=== PATIENT | male | born 1955 | race Caucasian/White ===

== ENCOUNTER 2022-09-09 12:20 | Observation (INO) | payer MEDICARE, OTHER ==
[~2022-09-09] VITALS: Ht 167.7 cm; Wt 100.0 kg
[2022-09-09] MEDS ORDERED: NS IV 1000 ML 1,000 ML IV STA ×2 (12:43→13:53)
[2022-09-09] MEDS ORDERED: DOXYCYCLINE 100 MG (VIBRAMYCIN) TABLET PO STA (12:43)
--- NOTE | 2022-09-09 12:43 | ED Fever ---
History of Present Illness General Stated Complaint: VOMITING Source: patient, family Exam Limitations: no limitations History of Present Illness Date Seen by Provider: Sep 09, 2022 Time Seen by Provider: 12:25 Initial Comments 67-year-old male with past medical history of diabetes, hypertension, hyperlipidemia coming in due to 3 days of fever, cough, congestion, and nonbloody nonbilious vomiting. Was urinating last night and had a near syncopal episode where he caught himself. Did not hit his head or pass out. Denies any dysuria or hematuria. Otherwise denies any chest pain, palpitations, shortness of breath, abdominal pain, rash, focal weakness or numbness, headache, neck stiffness, or any other concerns. Has not had any antipyretics today. Does endorse some right flank pain which is new to him. Allergies and Home Medications Allergies Coded Allergies: Penicillins (Verified Allergy, Unknown, 09/09/22) lisinopril (Verified Allergy, Unknown, 09/09/22) Patient Home Medication List Home Medication List Reviewed: Yes Review of Systems Review of Systems Constitutional: fever EENTM: nose congestion Respiratory: cough Cardiovascular: No chest pain Gastrointestinal: no symptoms reported Genitourinary: no symptoms reported Musculoskeletal: no symptoms reported Skin: no symptoms reported Psychiatric/Neurological: No Symptoms Reported Hematologic/Lymphatic: No Symptoms Reported Immunological/Allergic: no symptoms reported All Other Systems Reviewed Negative Unless Noted: Yes Past Zvcidzz-Pgrxwf-Nycvqc Hx Patient Social History Tobacco Use?: No Smoking Status: Former Smoker Past Medical History Surgeries: No Physical Exam Vital Signs - First Documented 09/09/22 12:25 Temp 37.9 Pulse 89 Resp 17 B/P (MAP) 120/70 (87) O2 Delivery Room Air Capillary Refill : Height: '" Weight: lbs. oz. kg; BMI Method: General Appearance: WD/WN, no apparent distress Eyes: Bilateral Eye Normal Inspection HEENT: PERRL/EOMI, normal ENT inspection, pharynx normal Neck: non-tender, full range of motion, supple, normal inspection Respiratory: chest non-tender, no respiratory distress, no accessory muscle use, wheezing Cardiovascular: regular rate, rhythm, no edema, no murmur Gastrointestinal: normal bowel sounds, non tender, soft; No distended, No guarding, No rebound; hernia (Periumbilical, reducible) Extremities: normal range of motion, non-tender, normal inspection, no pedal edema, no calf tenderness, normal capillary refill Neurologic/Psychiatric: no motor/sensory deficits, alert, normal mood/affect Skin: normal color, warm/dry Lymphatic: no adenopathy Focused Exam Lactate Level 09/09/22 12:35: Lactic Acid Level 2.54*H 09/09/22 14:42: Lactic Acid Level 1.50 Lactic Acid Level Laboratory Tests Test 09/09/22 12:35 09/09/22 14:42 Lactic Acid Level 2.54 MMOL/L (0.50-2.00) *H 1.50 MMOL/L (0.50-2.00) Progress/Results/Core Measures Suspected Sepsis SIRS Temperature: Pulse: Respiratory Rate: Laboratory Tests 09/09/22 12:35: White Blood Count 8.5 Blood Pressure / Mean: 09/09/22 12:35: Lactic Acid Level 2.54*H 09/09/22 14:42: Lactic Acid Level 1.50 Laboratory Tests 09/09/22 12:35: Creatinine 0.74, Platelet Count 179, Total Bilirubin 1.0 Results/Orders Lab Results Laboratory Tests Test 09/09/22 12:35 09/09/22 12:40 09/09/22 14:42 Range/Units White Blood Count 8.5 4.3-11.0 10^3/uL Red Blood Count 4.84 4.30-5.52 10^6/uL Hemoglobin 15.7 13.3-17.7 g/dL Hematocrit 43 40-54 % Mean Corpuscular Volume 88 80-99 fL Mean Corpuscular Hemoglobin 32 25-34 pg Mean Corpuscular Hemoglobin Concent 37 H 32-36 g/dL Red Cell Distribution Width 11.4 10.0-14.5 % Platelet Count 179 130-400 10^3/uL Mean Platelet Volume 9.7 9.0-12.2 fL Immature Granulocyte % (Auto) 1 % Neutrophils (%) (Auto) 81 H 42-75 % Lymphocytes (%) (Auto) 12 12-44 % Monocytes (%) (Auto) 7 0-12 % Eosinophils (%) (Auto) 0 0-10 % Basophils (%) (Auto) 0 0-10 % Neutrophils # (Auto) 6.9 1.8-7.8 10^3/uL Lymphocytes # (Auto) 1.0 1.0-4.0 10^3/uL Monocytes # (Auto) 0.6 0.0-1.0 10^3/uL Eosinophils # (Auto) 0.0 0.0-0.3 10^3/uL Basophils # (Auto) 0.0 0.0-0.1 10^3/uL Immature Granulocyte # (Auto) 0.0 0.0-0.1 10^3/uL Sodium Level 129 L 135-145 MMOL/L Potassium Level 3.3 L 3.6-5.0 MMOL/L Chloride Level 88 L 98-107 MMOL/L Carbon Dioxide Level 27 21-32 MMOL/L Anion Gap 14 5-14 MMOL/L Blood Urea Nitrogen 17 7-18 MG/DL Creatinine 0.74 0.60-1.30 MG/DL Estimat Glomerular Filtration Rate 100 BUN/Creatinine Ratio 23 Glucose Level 255 H 70-105 MG/DL Lactic Acid Level 2.54 *H 1.50 0.50-2.00 MMOL/L Calcium Level 8.6 8.5-10.1 MG/DL Corrected Calcium 8.9 8.5-10.1 MG/DL Magnesium Level 1.7 1.6-2.4 MG/DL Total Bilirubin 1.0 0.1-1.0 MG/DL Aspartate Amino Transf (AST/SGOT) 82 H 5-34 U/L Alanine Aminotransferase (ALT/SGPT) 54 0-55 U/L Alkaline Phosphatase 54 40-136 U/L Troponin I < 0.30 <0.30 NG/ML Total Protein 7.0 6.4-8.2 GM/DL Albumin 3.6 3.2-4.5 GM/DL Lipase 25 8-78 U/L Influenza Type A (RT-PCR) Not Detected Not Detecte Influenza Type B (RT-PCR) Not Detected Not Detecte SARS-CoV-2 RNA (RT-PCR) Not Detected Not Detecte My Orders Orders - ASTON VICENTE MD Chest 1 View Ap/Pa Only (09/09/22 12:43) Ct Abdomen/Pelvis Wo (09/09/22 12:43) Ed Iv/Invasive Line Start (09/09/22 12:43) Ekg Tracing (09/09/22 12:43) Monitor-Rhythm Ecg Trace Only (09/09/22 12:43) Cbc With Automated Diff (09/09/22 12:43) Comprehensive Metabolic Panel (09/09/22 12:43) Lactic Acid Analyzer (09/09/22 12:43) Lipase (09/09/22 12:43) Magnesium (09/09/22 12:43) Ua Culture If Indicated (09/09/22 12:43) Influenza A And B By Pcr (09/09/22 12:43) Troponin I Fs (09/09/22 12:43) Covid 19 Inhouse Test (09/09/22 12:43) Albuterol/Ipra Inhalation Soln (Duoneb I (09/09/22 12:45) Methylprednisolone Sod Succ (Solu-Medrol (09/09/22 12:45) Doxycycline Hyclate Tablet (Vibramycin T (09/09/22 12:43) Ns Iv 1000 Ml (Sodium Chloride 0.9%) (09/09/22 12:43) Acetaminophen Tablet (Tylenol Tablet) (09/09/22 12:45) Blood Culture (09/09/22 13:29) Ceftriaxone 1 Gm Pre-Mix (Rocephin 1 Gm (09/09/22 13:30) Ct Chest Wo (09/09/22 13:30) Ns Iv 1000 Ml (Sodium Chloride 0.9%) (09/09/22 13:53) Ed Admission (Communication) (09/09/22 13:58) Medications Given in ED Current Medications Medications Dose Ordered Sig/Ava Route Start Time Stop Time Status Last Admin Dose Admin Acetaminophen 1,000 mg ONCE ONCE PO 09/09/22 12:45 09/09/22 12:47 DC 09/09/22 12:57 1,000 MG Albuterol/ Ipratropium 3 ml ONCE ONCE INH 09/09/22 12:45 09/09/22 12:47 DC 09/09/22 12:56 3 ML Ceftriaxone Sodium/Dextrose 50 ml @ 100 mls/hr ONCE ONCE IV 09/09/22 13:30 09/09/22 13:59 DC 09/09/22 13:58 100 MLS/HR Methylprednisolone Sodium Succinate 125 mg ONCE ONCE IVP 09/09/22 12:45 09/09/22 12:47 DC 09/09/22 12:57 125 MG Vital Signs/I&O 09/09/22 12:25 Temp 37.9 Pulse 89 Resp 17 B/P (MAP) 120/70 (87) O2 Delivery Room Air Capillary Refill : Progress Note : Progress Note 67-year-old male with above history coming in due to cough, fever, and mild dyspnea. ABCs were intact and vitals were stable on presentation. Physical exam with bilateral wheezing. Given his smoking history, he was given a DuoNeb as well as steroids and doxycycline for presumed COPD exacerbation. He had some right flank pain, and given the fever with this, CT was obtained. This showed a wedge infiltrate on the left lower lung concerning for pneumonia. Ceftriaxone was added to his regimen as well as IV fluids. His PORT score is 106 and recommendations would be for admission. On reassessment his oxygen is around 90% as well, he does not wear oxygen at baseline. I will discussed the case with Dr. Lewis for admission. She will admit him under observation status for now ECG Initial ECG Impression Date: Sep 09, 2022 Initial ECG Impression Time: 13:04 Initial ECG Rate: 87 Initial ECG Rhythm: Normal Sinus Comment Narrow QRS, normal axis, no significant ST changes Diagnostic Imaging Diagonstic Imaging: Xray (chest), CT (abd/pelvis without) Comments [facility], [place] NAME: SINAI [facility] REC#: [id number] PT STATUS: REG ER : 1955 PHYSICIAN: ASTON VICENTE MD ADMIT DATE: 09/09/22/ER FS Draft Date of Exam:09/09/22 CHEST 1 VIEW AP/PA ONLY INDICATION: cough, SOB. TECHNIQUE: Single-view chest at 12:50 p.m. CORRELATION STUDY: None. FINDINGS: Heart size is enlarged. Mediastinum is mildly prominent. Vasculature is overall within normal limits. Question minimal atelectasis at the right lung base. The left diaphragm is at least partially obscured, suggesting effusion along with atelectasis or infiltrate at the left lung base. IMPRESSION: 1. Suspect combination of effusion along with atelectasis and/or infiltrate at the left lung base. Dictated on workstation # [id number] Dict: 09/09/22 1300 Trans: 09/09/22 1305 [id number] [id number] Interpreted by: JERRY QUINN DO Electronically signed by: Departure Impression Primary Impression: Pneumonia Qualified Codes: J18.9 - Pneumonia, unspecified organism Additional Impression: Respiratory failure Qualified Codes: J96.01 - Acute respiratory failure with hypoxia Disposition: 30 STILL A PATIENT Condition: Stable Admissions Decision to Admit Reason: Admit from ER (General) Decision to Admit/Date: Sep 09, 2022 Time/Decision to Admit Time: 13:50 Transfer Method of Transfer: EMS Departure-Patient Inst. Referrals: ANKIT PEREZ APRN (PCP) Primary Care Physician [facility] (Family) Primary Care Physician ASTON VICENTE MD Sep 09, 2022 12:43
[2022-09-09] MEDS ORDERED: RT-ALBUTEROL/IPRATROPIUM 3 ML (DUONEB) VIAL INH ONE (12:45)
[2022-09-09] MEDS ORDERED: methylPREDNISolone 125 MG (Solu-MEDROL) VIAL IVP ONE (12:45)
[2022-09-09] MEDS ORDERED: ACETAMINOPHEN 500 MG TAB (TYLENOL) PO ONE (12:45)
[2022-09-09 12:59] LABS: BASOPHILS % (AUTO) 0 % (0-10); EOSINOPHILS % (AUTO) 0 % (0-10); HEMATOCRIT 43 % (40-54); HEMOGLOBIN 15.7 g/dL (13.3-17.7); LYMPHOCYTES % (AUTO) 12 % (12-44); MEAN CORPUSCULAR HEMOGLOBIN 32 pg (25-34); MEAN CORPUSCULAR HGB CONC 37 g/dL (32-36); MEAN CORPUSCULAR VOLUME 88 fL (80-99); MEAN PLATELET VOLUME 9.7 fL (9.0-12.2); MONOCYTES # (AUTO) 0.6 10^3/uL (0.0-1.0); MONOCYTES % (AUTO) 7 % (0-12); NEUTROPHILS # (AUTO) 6.9 10^3/uL (1.8-7.8); NEUTROPHILS % (AUTO) 81 % (42-75); PLATELET COUNT 179 10^3/uL (130-400); WHITE BLOOD COUNT 8.5 10^3/uL (4.3-11.0)
--- NOTE | 2022-09-09 13:05 | Diagnostic Imaging Report ---
INDICATION: cough, SOB. TECHNIQUE: Single-view chest at 12:50 p.m. CORRELATION STUDY: None. FINDINGS: Heart size is enlarged. Mediastinum is mildly prominent. Vasculature is overall within normal limits. Question minimal atelectasis at the right lung base. The left diaphragm is at least partially obscured, suggesting effusion along with atelectasis or infiltrate at the left lung base. IMPRESSION: 1. Suspect combination of effusion along with atelectasis and/or infiltrate at the left lung base. Dictated by: Dictated on workstation # [id number]
[2022-09-09 13:19] LABS: ALANINE AMINOTRANSFERASE 54 U/L (0-55); ALKALINE PHOSPHATASE 54 U/L (40-136); BUN/CREATININE RATIO 23; CALCIUM 8.6 MG/DL (8.5-10.1); CARBON DIOXIDE 27 MMOL/L (21-32); CHLORIDE 88 MMOL/L (98-107); CREATININE SERUM 0.74 MG/DL (0.60-1.30); GFR ESTIMATED 100; GLUCOSE 255 MG/DL (70-105); MAGNESIUM 1.7 MG/DL (1.6-2.4); POTASSIUM 3.3 MMOL/L (3.6-5.0); SODIUM 129 MMOL/L (135-145)
[2022-09-09 13:20] LABS: ALBUMIN 3.6 GM/DL (3.2-4.5); LIPASE 25 U/L (8-78)
[2022-09-09] MEDS ORDERED: cefTRIAXone 1 GM PRE-MIX 50 ML IV ONE (13:30)
--- NOTE | 2022-09-09 14:02 | Diagnostic Imaging Report ---
PROCEDURE: CT abdomen and pelvis without contrast. TECHNIQUE: Multiple contiguous axial images were obtained through the abdomen and pelvis without the use of intravenous contrast. Auto Exposure Controls were utilized during the CT exam to meet ALARA standards for radiation dose reduction. INDICATION: Vomiting and low back pain. No prior studies are available for comparison. FINDINGS: Imaging through the lung bases show some significant consolidation in the left lower lobe with air bronchograms suggestive of pneumonia. Liver demonstrates diffuse low attenuation consistent with hepatic steatosis. No discrete liver mass is detected. The gallbladder is unremarkable. No biliary ductal dilatation is seen. The pancreas and spleen are unremarkable. No adrenal mass is detected. Kidneys are without calculi or hydronephrosis. Aorta is nonaneurysmal. There is a midline fat-containing ventral hernia with the defect measuring approximately 3.6 cm. This is in the right paramidline location. Just inferior to this and in the left paramidline location is a second fat-containing ventral hernia with defect measuring approximately 2 cm. There is also a fat-containing umbilical hernia just inferior to this level. There are fat-containing bilateral inguinal hernias. Bowel loops are normal in caliber. There is no evidence of obstruction. There is no ascites or fluid collection. There is no free air. The bladder and prostate are unremarkable. The bony structures appear nonacute. IMPRESSION: 1. Left lower lobe consolidation consistent with pneumonia. 2. Hepatic steatosis. 3. Fat-containing ventral, umbilical, and bilateral inguinal hernias. Dictated by: Dictated on workstation # [id number]
--- NOTE | 2022-09-09 14:07 | Diagnostic Imaging Report ---
PROCEDURE: CT chest without contrast. TECHNIQUE: Multiple contiguous axial images were obtained through the chest without the use of intravenous contrast. Auto Exposure Controls were utilized during the CT exam to meet ALARA standards for radiation dose reduction. INDICATION: Pneumonia. FINDINGS: No axillary lymphadenopathy is detected. No definite mediastinal or hilar lymphadenopathy is detected. There is no pericardial or pleural fluid identified. Parenchymal evaluation does show some minimal patchy infiltrate in the superior segment of the right lower lobe. There is marked consolidation and air bronchograms involving the left lower lobe, most consistent with pneumonia. The upper abdomen demonstrates hepatic steatosis. IMPRESSION: 1. Bilateral lower lobe pneumonia, most significant in the left lower lobe. Followup two-view chest radiographs would be recommended after a course of therapy to ensure complete clearing. 2. Hepatic steatosis. Dictated by: Dictated on workstation # [id number]
[2022-09-09 16:20] VITALS: BP 120/71
[2022-09-09] MEDS ORDERED: cloNIDine 0.1 MG (CATAPRES) TAB PO PRN (16:30)
[2022-09-09] MEDS ORDERED: diphenhydrAMINE 25 MG TAB (BENADRYL) PO PRN (16:30)
[2022-09-09] MEDS ORDERED: guaiFENesin SYRUP 100 MG/5 ML 10 ML (ROBITUSSIN SF) PO PRN (16:30)
[2022-09-09] MEDS ORDERED: morphine INJ 4 MG/ML 1 ML (VIAL/SYRINGE) IV PRN (16:30)
[2022-09-09] MEDS ORDERED: cefTRIAXone 1 GM PRE-MIX 50 ML IV SCH (16:30)
[2022-09-09] MEDS ORDERED: ANTACID SUSP 30 ML UDC (MYLANTA) PO PRN (16:30)
[2022-09-09] MEDS ORDERED: MELATONIN 3 MG TABLET PO PRN (16:30)
[2022-09-09] MEDS ORDERED: polyethylene glycoL POWDER 17 GM (MIRALAX) PACK PO PRN (16:30)
[2022-09-09] MEDS ORDERED: ONDANSETRON 4 MG (ZOFRAN) ORAL DISSOLVE TAB PO PRN (16:30)
[2022-09-09] MEDS ORDERED: diphenhydrAMINE 50 MG/ML INJ (BENADRYL) IVP PRN (16:30)
[2022-09-09] MEDS ORDERED: ONDANSETRON 4 MG/2 ML (SDV) Z0FRAN IV PRN (16:30)
[2022-09-09] MEDS ORDERED: DOXYCYCLINE INJECTION 100 MG in NS (IVPB) 100 ML IV SCH (16:30)
[2022-09-09] MEDS ORDERED: BISACODYL 10 MG SUPP (DULCOLAX) PR PRN (16:30)
[2022-09-09] MEDS ORDERED: ALPRAZolam 0.5 MG (XANAX) TAB PO PRN (16:30)
[2022-09-09 16:48] VITALS: BP 120/71
[2022-09-09] MEDS: NS IV 1000 ML 1,000 ML IV SCH ×2 (17:00→20:07)
[2022-09-09] MEDS: ENOXAPARIN 40 MG/0.4 ML (LOVENOX) SYR SC SCH (17:21)
[2022-09-09] MEDS: RT-ALBUTEROL/IPRATROPIUM 3 ML (DUONEB) VIAL INH SCH (19:12)
[2022-09-09 19:26] VITALS: BP 109/55
[2022-09-09] MEDS: DOCUSATE SODIUM 100 MG (COLACE) CAP PO SCH (20:10)
[2022-09-09] MEDS: DOXYCYCLINE INJECTION 100 MG in NS (IVPB) 100 ML IV SCH (20:10)
[2022-09-09] MEDS ORDERED: UBID100C17 PO (20:22)
[2022-09-09] MEDS ORDERED: CARV12.53 PO (20:22)
[2022-09-09] MEDS ORDERED: SIMV40TA25 PO (20:22)
[2022-09-09] MEDS ORDERED: HYDR25TA4 PO (20:22)
[2022-09-09] MEDS ORDERED: METF-397 PO (20:22)
[2022-09-09] MEDS ORDERED: CHOL10008 PO (20:22)
[2022-09-09] MEDS ORDERED: LORA10TA7 PO (20:22)
[2022-09-09] MEDS ORDERED: ASPI-999 PO (20:22)
[2022-09-09] MEDS: inSUlin ASPART (NovoLOG) 1 UNIT/0.01 ML (CHARGE PER UNIT) SC SCH (20:28)
[2022-09-09 20:31] VITALS: BP 117/59
[2022-09-09 23:16] VITALS: BP 135/50
[2022-09-10] MEDS: RT-ALBUTEROL/IPRATROPIUM 3 ML (DUONEB) VIAL INH SCH ×7 (02:52→22:39)
[2022-09-10 03:41] VITALS: BP 111/58
[2022-09-10] MEDS: NS IV 1000 ML 1,000 ML IV SCH (03:44)
[2022-09-10 05:51] LABS: BASOPHILS % (AUTO) 0 % (0-10); EOSINOPHILS % (AUTO) 0 % (0-10); HEMATOCRIT 38 % (40-54); HEMOGLOBIN 13.4 g/dL (13.3-17.7); LYMPHOCYTES # (AUTO) 0.8 10^3/uL (1.0-4.0); LYMPHOCYTES % (AUTO) 12 % (12-44); MEAN CORPUSCULAR HEMOGLOBIN 32 pg (25-34); MEAN CORPUSCULAR HGB CONC 35 g/dL (32-36); MEAN CORPUSCULAR VOLUME 90 fL (80-99); MEAN PLATELET VOLUME 10.1 fL (9.0-12.2); MONOCYTES # (AUTO) 0.4 10^3/uL (0.0-1.0); MONOCYTES % (AUTO) 6 % (0-12); NEUTROPHILS # (AUTO) 5.7 10^3/uL (1.8-7.8); NEUTROPHILS % (AUTO) 82 % (42-75); PLATELET COUNT 162 10^3/uL (130-400)
[2022-09-10 06:09] LABS: ALBUMIN 2.9 GM/DL (3.2-4.5); BILIRUBIN,TOTAL 0.6 MG/DL (0.1-1.0); CALCIUM 7.7 MG/DL (8.5-10.1); CREATININE SERUM 0.7 MG/DL (0.60-1.30); TOTAL PROTEIN 5.7 GM/DL (6.4-8.2)
[2022-09-10] MEDS: inSUlin ASPART (NovoLOG) 1 UNIT/0.01 ML (CHARGE PER UNIT) SC SCH ×4 (06:18→20:27)
[2022-09-10 07:28] VITALS: BP 100/59
[2022-09-10] MEDS: DOXYCYCLINE INJECTION 100 MG in NS (IVPB) 100 ML IV SCH ×2 (08:48→19:54)
[2022-09-10] MEDS: LORATADINE (CLARITIN) 10 MG TAB PO SCH (08:53)
[2022-09-10] MEDS: metFORMIN 500 MG (GLUCOPHAGE) TAB PO SCH ×2 (08:53→16:57)
[2022-09-10] MEDS: ASPIRIN 81 MG CHEW (CHILDREN'S ASA) PO SCH (08:53)
[2022-09-10] MEDS: DOCUSATE SODIUM 100 MG (COLACE) CAP PO SCH ×2 (08:53→19:53)
[2022-09-10] MEDS ORDERED: UBID100T PO (10:13)
[2022-09-10] MEDS: KCL 20 MEQ TAB (K-DUR) PO SCH ×2 (11:11→19:53)
--- NOTE | 2022-09-10 11:19 | Consultation-Cardiology ---
HPI-Cardiology Cardiology Consultation Date of Consultation 09/10/22 Date of Admission 09/09/22 Time Seen by Provider: 10:50 HPI Kelvin Wyatt is a 67 year old male with T2DM, HTN, HLD, and a history of PVCs that was admitted from [place] [facility] with fever, congestion, and cough since Friday. He fell the morning prior to arrival. He states he was in his bathroom, became disoriented, and fell, catching himself on his elbows. He denies hitting his head or loss of consciousness. He also had nonbloody emesis twice prior to arrival. Denies chest pain, ankle edema, SOB, and palpitations. In the ER, CT of his abdomen and pelvis showed left lower lobe pneumonia. CXR showed effusion with atelectasis and/or infiltrate of the left lung base. CT of the chest showed bilateral lower lobe pneumonia and hepatic steatosis. An EKG showed sinus rhythm with a RBBB. He was admitted for pneumonia and was given doxycycline and prescribed ceftriaxone. He also received duonebs and steroids in the ED for presumed COPD. The only cardiac history the patient reports happen 1 year ago in [place], [place]. He states he was becoming very SOB on exertion, and a homebirth midwife diagnosed him with PVCs. He states he was given a medication for it, but doesn't remember what it was. He has not had SOB since prior to this pneumonia bout. Dr. Garner: At the pleasure of seeing King in the medical/surgical unit at [facility] in [place], [place] today. He has a history of premature ventricular complexes that manifested as shortness of breath several years ago when he was living in [place]. He saw homebirth midwife at that time who made the diagnosis and placed him on carvedilol and his ectopy and shortness of breath improved. He moved to [place] about 1 year ago. For the past few days he has had increasing fatigue and lethargy. He had some slight shortness of breath. He also had a slight cough and a low-grade fever. He did not seek medical attention. Then early on the morning of admission, he got up to use the bathroom and when he was washing up, he felt extremely weak and collapsed on the floor. He hit his left elbow and back. He did not have syncope. At that point, his told him he needed to come to the hospital. He was evaluated in the emergency room and diagnosed with bibasilar pneumonia and admitted to the medical floor. Because of his history of premature ventricular complexes, a cardiology consultation was requested. He denies chest discomfort, paroxysmal nocturnal dyspnea, orthopnea, palpitations, or lower extremity edema. Certain portions of this document may have been dictated utilizing voice recognition technology. Inherent to this technology, typographical and grammat ical errors may exist. As much as I am diligent to identify and correct these mistakes, some errors may remain in the document. Home Medications & Allergies Allergies: Coded Allergies: Penicillins (Verified Allergy, Unknown, 09/09/22) lisinopril (Verified Allergy, Unknown, 09/09/22) RDD-Rukcij-Xbckri Hx Patient Social History Marital Status: Smoking Status: Former Smoker (quit 4 years ago) Have you traveled recently?: No Alcohol Use?: No Immunizations Up To Date Date of Influenza Vaccine: Aug 19, 2022 Family Medical History Significant Family History: Heart Disease (dad), Hypertension (mom) Review of Systems-General Review of Systems Constitutional: fever, malaise EENTM: nose congestion; No blurred vision, No throat pain Respiratory: cough; No dyspnea on exertion, No orthopnea, No short of breath; wheezing Cardiovascular: No chest pain, No edema, No palpitations; syncope Gastrointestinal: No abdominal pain; nausea, vomiting (2x prior to arrival) Genitourinary: no symptoms reported Musculoskeletal: no symptoms reported Skin: no symptoms reported Psychiatric/Neurological: No Symptoms Reported All Other Systems Reviewed Negative Unless Noted: Yes Reviewed Test Results Reviewed Test Results Lab Laboratory Tests 09/09/22 12:35: Mean Corpuscular Hemoglobin Concent 37H, Neutrophils (%) (Auto) 81H, Sodium Level 129L, Potassium Level 3.3L, Chloride Level 88L, Glucose Level 255H, Lactic Acid Level 2.54*H, Aspartate Amino Transf (AST/SGOT) 82H 09/09/22 12:40: 09/09/22 14:42: 09/09/22 20:03: Glucometer 289H 09/10/22 05:27: Red Blood Count 4.22L, Hematocrit 38L, Neutrophils (%) (Auto) 82H, Lymphocytes # (Auto) 0.8L, Potassium Level 3.0L, Glucose Level 183H, Calcium Level 7.7L, Aspartate Amino Transf (AST/SGOT) 72H, Total Protein 5.7L, Albumin 2.9L 09/10/22 11:15: Glucometer 127H Radiology IMPRESSION: 1. Left lower lobe consolidation consistent with pneumonia. 2. Hepatic steatosis. 3. Fat-containing ventral, umbilical, and bilateral inguinal hernias. IMPRESSION: 1. Suspect combination of effusion along with atelectasis and/or infiltrate at the left lung base. IMPRESSION: 1. Bilateral lower lobe pneumonia, most significant in the left lower lobe. Followup two-view chest radiographs would be recommended after a course of therapy to ensure complete clearing. 2. Hepatic steatosis. ECHOCARDIOGRAM (09/10/2022): 1. Left ventricle: The cavity size is normal. Wall thickness is normal. Systolic function is normal. The estimated ejection fraction is 60-65%. There were no regional wall motion abnormalities identified. Left ventricular diastolic function parameters are normal. 2. Aortic valve: There is mild aortic valve sclerosis. 3. Pulmonary arteries: The estimated pulmonary artery systolic pressure is 36 mmHg assuming a right atrial pressure of 5 mmHg. ECG Impression ECG Comment Sinus rhythm with low voltage in the precordial leads, nonspecific intraventricular conduction delay and nonspecific anterior T wave changes. Physical Exam Physical Exam Vital Signs Vital Signs - First Documented 09/09/22 09/09/22 09/09/22 12:25 15:00 16:20 Temp 37.9 Pulse 89 Resp 17 B/P (MAP) 120/70 (87) Pulse Ox 93 O2 Delivery Room Air O2 Flow Rate 4.00 Capillary Refill : Less Than 3 Seconds Height, Weight, BMI Height: '" Weight: lbs. oz. kg; 35.55 BMI Method: General Appearance: No Apparent Distress, Obese Eyes: Bilateral Eye Normal Inspection HEENT: Normal ENT Inspection Neck: Normal Inspection, Supple Respiratory: Chest Non Tender, No Respiratory Distress, Crackles, Wheezing Cardiovascular: Regular Rate, Rhythm, No Murmur Gastrointestinal: Non Tender, Soft Extremity: Normal Inspection, No Calf Tenderness, No Pedal Edema Neurologic/Psychiatric: Alert, Oriented x3, Normal Mood/Affect Skin: Normal Color, Warm/Dry Comments Dr. Garner: General: Alert. No acute distress. Well nourished and appears stated age. He is obese. Eye: Extraocular movements are intact. Conjunctivae are clear. There are no xanthelasma. HENT: Normocephalic. Atraumatic. Carotid pulsations 2/2 without bruits. Neck: Jugular venous pressure does not appear elevated. No thyromegaly appreciated. Respiratory: Lungs are clear to auscultation. Respirations are non-labored. Breath sounds are equal. Symmetrical chest wall expansion. Cardiovascular: Normal rate. Regular rhythm. No murmur. No gallop. Point of maximal impulse is not appear displaced. Good pulses equal in all extremities. No edema. Gastrointestinal: Soft. Normal bowel sounds. Skin: Skin turgor is normal. There is no pallor. Musculoskeletal: No kyphosis or scoliosis appreciated. Neurologic: Alert and oriented to person, place, time. Cranial nerves 3-12 appear grossly intact. The patient has good motor tone strength in the upper and lower extremities bilaterally. Psychiatric: Cooperative. Appropriate mood & affect. A/P-Cardiology Admission Diagnosis (1) Pneumonia Status: Acute Assessment & Plan: Treatment managed by inpatient care team. Received doxycycline and ceftriaxone. Qualifiers: Qualified Codes: J18.9 - Pneumonia, unspecified organism (2) Primary hypertension Assessment & Plan: continue Carvedilol (3) Mixed hyperlipidemia Assessment & Plan: Obtain lipid panel (4) Obesity Assessment & Plan: Counseled on the benefits of weight loss (5) Type 2 diabetes mellitus without complication Assessment & Plan: Continue metformin and novolog (6) Ventricular premature complexes Assessment & Plan: Continue his beta lakhwinder. Respiratory distress experienced on admission was likely due to bilateral pneumonia. Assessment/Plan Dr. Garner: Premature ventricular complexes. The patient is on telemetry and has not had any significant PVCs. He states that these essentially resolved on carvedilol. He has normal ejection fraction. This is most likely a benign condition. I just recommend he continue on carvedilol. I do not recommend any additional cardiac testing at this point in time. He can follow-up with our office after discharge. Shortness of breath. Most likely due to the bibasilar pneumonia. There was no evidence of pulmonary congestion or pulmonary edema on either his chest x-ray or chest CT. He also has normal ejection fraction. Essential hypertension. Continue carvedilol. I would suggest holding the hydrochlorothiazide since he has not eaten in the past few days and may be slightly dehydrated. Mixed hyperlipidemia. His LDL level is under very good control on simvastatin. I recommend he continue the current dose. We may need to make a substitution by our pharmacy since this is not on formulary or he can take his home medication. Supervisory-Addendum Brief Verification & Attestation Participated in pt care: history, MDM, physical Personally performed: exam, history, MDM, supervision of care Care discussed with: Medical Student Procedures: n/a Results interpretation: Verified all documentation I independently performed my own history and physical and physical examination. I formulated my own impression and plan. I also reviewed the documentation of the medical student. TED KLEIN Sep 10, 2022 11:19 HOANG GARNER JR, MD Sep 10, 2022 12:22
[2022-09-10 11:25] VITALS: BP 105/65
--- NOTE | 2022-09-10 11:38 | History & Physical-Hospitalist ---
ESAU DE LA ROSA 09/10/22 1138: History of Present Illness HPI/Chief Complaint Patient is a 67-year-old male with a history of HTN, HLD, DM, and PVCs who presented to the ED on 09/09 with chief complaint of fever, vomiting, and coughing. The patient states that his symptoms began about 4-5 days ago shortly after his was overcoming an illness. His symptoms initially improved but began to worsen over the next couple days. He had 2 episodes of non-bloody emesis and states that he was so fatigued he could barely get off the couch. The patient states that he was not able to eat 3-4 days prior to admission due to his N/V. Yesterday, the patient was standing up after using the restroom and had a near syncopal episode that caused him to lose his balance and fall to the floor and needed his 's assistance to get back up. CT of the abdomen and pelvis showed left lower lobe pneumonia as well as hepatic steatosis and ventral, umbilical, and b/l inguinal hernias. CXR showed effusion and atelectasis/infiltrates in the left lower lobe consistent with pneumonia, and CT of the chest showed b/l lower lobe pneumonia worse on the left. EKG showed sinus rhythm with an incomplete right bundle branch block. The patient reports that he feels much better today compared to yesterday. He was able to eat dinner last night without any N/V and feels that his fatigue and coughing have improved. Wheezing is present b/l on auscultation of the lungs. The patient has no other complaints. Source: patient, RN/MD, RN notes reviewed, EMS notes reviewed Date Seen 09/10/22 Attending Physician Carolina Benson Aprn PCP Admitting Physician: Maria M Lewis DO Attending Physician: Maria M Lewis DO Referring Physician Date of Admission Sep 09, 2022 at 15:40 Home Medications & Allergies Home Medications Reviewed patient Home Medication Reconciliation performed by pharmacy medication reconciliations process engineering technician and/or nursing. Patients Allergies have been reviewed. Allergies Allergies Coded Allergies Penicillins (Verified Allergy, Unknown, 09/09/22) lisinopril (Verified Allergy, Unknown, 09/09/22) Past Sbzmmjp-Heswuj-Fjnqng Hx Patient Social History Marrital Status: Tobacco Use?: No Smoking Status: Former Smoker (quit 4 years ago) Smokeless Tobacco Frequency: Never a User Use of E-Cig and/or Vaping dev: No Substance use?: No Alcohol Use?: No Pt feels they are or have been: No Immunizations Up To Date Date of Influenza Vaccine: Aug 19, 2022 Current Status Advance Directives: No Communicates: Verbally Primary Language: Mohawk Preferred Spoken Language: Mohawk Is interpretation needed?: No Implanted or Applied Medical D: None Family Medical History Heart Disease (dad), Hypertension (mom) Review of Systems Constitutional: No chills; fever (prior to admission) EENTM: No hearing loss, No blurred vision Respiratory: cough (dry, improving); No hemoptysis Gastrointestinal: nausea (improving), vomiting (No episodes since admission) Genitourinary: No dysuria, No hematuria Musculoskeletal: back pain (Attributes to fall at home); No muscle weakness Psychiatric/Neurological: Denies Numbness; Weakness (improving) Physical Exam Physical Exam Vital Signs Vital Signs - First Documented 09/09/22 09/09/22 09/09/22 12:25 15:00 16:20 Temp 37.9 Pulse 89 Resp 17 B/P (MAP) 120/70 (87) Pulse Ox 93 O2 Delivery Room Air O2 Flow Rate 4.00 Capillary Refill : Less Than 3 Seconds Height, Weight, BMI Height: '" Weight: lbs. oz. kg; 35.55 BMI Method: General Appearance: No Apparent Distress, WD/WN HEENT: PERRL/EOMI Neck: Non Tender, Supple Respiratory: No Respiratory Distress, Wheezing Cardiovascular: Regular Rate, Rhythm, Normal Peripheral Pulses Gastrointestinal: Non Tender, Soft Rectal: Deferred Extremity: Normal Capillary Refill, Non Tender Neurologic/Psychiatric: Alert, Oriented x3 Skin: Normal Color, Warm/Dry Lymphatic: No Adenopathy Results Results/Procedures Labs Laboratory Tests 09/09/22 12:35 09/10/22 05:27 Patient resulted labs reviewed. Assessment/Plan Admission Diagnosis Admission Status: Observation Assessment and Plan Pneumonia - community-acquired Near syncopal episode Fatigue Weakness HTN HLD Hx of PVCs T2DM Hypoxia Hypokalemic Currently on rocephin and doxycycline Monitor and replace electrolytes as needed Cardiology consulted Well-oxygenated on 4L via nasal cannula Continue Duoneb SSI and metformin Lovenox for DVT prophylaxis MARIA M LEWIS DO 09/11/22 0558: History of Present Illness HPI/Chief Complaint Chief complaint: Pneumonia HPI: This is a 67-year-old male with a history of diabetes hypertension hyperlipidemia PVCs and GENESIS on CPAP who presented to the ER in [place] due to fever for chills and shortness of breath found to have a significant infiltrate on chest x-ray meeting criteria for IV antibiotics and monitoring closely. Source: patient, RN/MD Time Seen by a Provider: 09:00 Review of Systems Constitutional: see HPI Physical Exam Physical Exam General Appearance: No Apparent Distress, Chronically ill, Obese Respiratory: No Accessory Muscle Use, No Respiratory Distress, Decreased Breath Sounds, Wheezing Cardiovascular: Regular Rate, Rhythm Neurologic/Psychiatric: Alert, Oriented x3, No Motor/Sensory Deficits, Normal Mood/Affect Assessment/Plan Admission Diagnosis Assessment: Acute respiratory failure requiring supplemental oxygen Pneumonia GENESIS on CPAP Obesity BMI 35 PVCs consulting cardiology Diabetes Hypertension Hyperlipidemia Plan: IV antibiotics Hep-Lock IV fluid Cardiology consult Admission Status: Observation Supervisory-Addendum Brief Verification & Attestation Participated in pt care: history, MDM, physical Personally performed: exam, history, MDM, supervision of care Care discussed with: Medical Student Procedures: n/a Results interpretation: Verified all documentation Verification and Attestation of Medical Student E/M Service A medical student performed and documented this service in my presence. I rev iewed and verified all information documented by the medical student and made modifications to such information, when appropriate. I personally performed the physical exam and medical decision making. Maria M Lewis, Sep 11, 2022,05:33 ESAU DE LA ROSA Sep 10, 2022 11:38 MARIA M LEWIS DO Sep 11, 2022 05:33
[2022-09-10] MEDS ORDERED: cefTRIAXone 1 GM PRE-MIX 50 ML IV SCH (13:00)
[2022-09-10 15:47] VITALS: BP 113/57
[2022-09-10] MEDS: ACETAMINOPHEN 325 MG TABLET PO PRN (16:57)
[2022-09-10] MEDS: ENOXAPARIN 40 MG/0.4 ML (LOVENOX) SYR SC SCH (16:57)
[2022-09-10 19:29] VITALS: BP 107/57
[2022-09-10] MEDS ORDERED: NON-FORMULARY MEDICATION 1 EA EA (Simvastatin 40 MG) PO SCH (21:00)
[2022-09-10 23:15] VITALS: BP 109/59
[2022-09-11] MEDS: RT-ALBUTEROL/IPRATROPIUM 3 ML (DUONEB) VIAL INH SCH ×3 (02:06→10:14)
[2022-09-11 03:05] VITALS: BP 116/59
[2022-09-11] MEDS: ACETAMINOPHEN 325 MG TABLET PO PRN ×2 (03:05→12:36)
[2022-09-11] MEDS: inSUlin ASPART (NovoLOG) 1 UNIT/0.01 ML (CHARGE PER UNIT) SC SCH ×2 (06:00→12:35)
[2022-09-11 06:02] LABS: ALBUMIN 2.8 GM/DL (3.2-4.5); BILIRUBIN,TOTAL 0.5 MG/DL (0.1-1.0); CALCIUM 7.8 MG/DL (8.5-10.1); CREATININE SERUM 0.63 MG/DL (0.60-1.30); POTASSIUM 3.4 MMOL/L (3.6-5.0); TOTAL PROTEIN 5.7 GM/DL (6.4-8.2)
[2022-09-11 06:06] LABS: BASOPHILS % (AUTO) 0 % (0-10); EOSINOPHILS % (AUTO) 0 % (0-10); HEMATOCRIT 38 % (40-54); HEMOGLOBIN 13.5 g/dL (13.3-17.7); LYMPHOCYTES # (AUTO) 1.6 10^3/uL (1.0-4.0); LYMPHOCYTES % (AUTO) 26 % (12-44); MEAN CORPUSCULAR HEMOGLOBIN 32 pg (25-34); MEAN CORPUSCULAR HGB CONC 36 g/dL (32-36); MEAN CORPUSCULAR VOLUME 90 fL (80-99); MEAN PLATELET VOLUME 10.5 fL (9.0-12.2); MONOCYTES # (AUTO) 0.5 10^3/uL (0.0-1.0); MONOCYTES % (AUTO) 7 % (0-12); NEUTROPHILS % (AUTO) 65 % (42-75); PLATELET COUNT 148 10^3/uL (130-400); WHITE BLOOD COUNT 6.2 10^3/uL (4.3-11.0)
[2022-09-11 07:38] VITALS: BP 119/61
[2022-09-11] MEDS ORDERED: DOXYCYCLINE 100 MG (VIBRAMYCIN) TABLET PO SCH (08:00)
--- NOTE | 2022-09-11 08:12 | Cardiology Progress Note ---
Subjective Date Seen by Provider: Sep 11, 2022 Time Seen by Provider: 07:25 Subjective/Events-last exam Pt reports feeling better this morning, with more energy and less of a cough. His only symptom is bilateral lower back pain, 3/10 when sitting and 8/10 when getting out of bed. This improves w/ OTC pain medication. He denies CP, SOB, edema, palpitations, and syncope at this time. He is hoping to go home today. Dr. Garner: I am following him due to his history of premature ventricular complexes. His breathing has improved. He thinks he may need an inhaler after discharge. He does not usually use inhalers at home. He does have a previous history of smoking. He denies chest discomfort, palpitations, syncope, or ankle edema. He is hoping he can go home today. Certain portions of this document may have been dictated utilizing voice recognition technology. Inherent to this technology, typographical and grammatical errors may exist. As much as I am diligent to identify and correct these mistakes, some errors may remain in the document. Focused Exam Lactate Level 09/09/22 12:35: Lactic Acid Level 2.54*H 09/09/22 14:42: Lactic Acid Level 1.50 Respiratory: No Accessory Muscle Use, No Respiratory Distress, Crackles Cardiovascular: Regular Rate, Rhythm, No Murmur Skin: normal color, warm/dry Objective-Cardiology Exam Last Set of Vital Signs Vital Signs 09/11/22 09/11/22 08:00 11:24 Temp 36.7 Pulse 66 Resp 18 B/P (MAP) 101/58 (72) Pulse Ox 91 O2 Delivery Room Air O2 Flow Rate 3.50 I&O Intake and Output 09/11/22 00:00 Intake Total 2560 ml Output Total 450 ml Balance 2110 ml Intake Oral 1460 ml IV Total 1100 ml Output Urine Total 450 ml # Voids 7 # Bowel Movements 3 General: Alert, Oriented X3, Cooperative, No Acute Distress HEENT: Atraumatic, EOMI Neck: Supple Lungs: Normal Air Movement, Other (slight crackles bilateral bases) Heart: Regular Rate, No Murmurs Abdomen: Soft, No Tenderness Extremities: No Edema Skin: No Significant Lesion Neuro: Normal Gait, Normal Speech Psych/Mental Status: Mental Status NL, Mood NL Other physical findings Dr. Garner: General: Alert. No acute distress. He is obese. Eye: No xanthelasma. HENT: Normocephalic. Neck: Jugular venous pressure does not appear elevated. Respiratory: Lungs have some slight scattered wheezes bilaterally. Respirations are non-labored. Breath sounds are equal. Symmetrical chest wall expansion. Cardiovascular: Normal rate. Regular rhythm. Distant S1/S2. No murmur. No gallop. No edema. Gastrointestinal: Soft. Normal bowel sounds. Skin: Warm. Dry. Neurologic: Alert and oriented to person, place, time. Cranial nerves 3-11 grossly intact. Psychiatric: Cooperative. Appropriate mood & affect. Results Lab Laboratory Tests 09/11/22 05:10 A/P-Cardiology Admission Diagnosis (1) Pneumonia Status: Acute Assessment & Plan: Treatment managed by inpatient care team. Received doxycycline and ceftriaxone. Qualifiers: Qualified Codes: J18.9 - Pneumonia, unspecified organism (2) Primary hypertension Assessment & Plan: Continue Carvedilol, holding hydralazine until he is eating and drinking regularly (3) Mixed hyperlipidemia Assessment & Plan: Lipids appear well controlled on current statin regimen, maintain current dose (4) Obesity Assessment & Plan: Counseled on the benefits of weight loss (5) Type 2 diabetes mellitus without complication Assessment & Plan: Continue metformin and novolog (6) Ventricular premature complexes Assessment & Plan: No PVCs currently. Continue his beta lakhwinder. Respiratory distress experienced on admission was likely due to bilateral pneumonia. Diagnosis/Problems Diagnosis/Problems (1) Ventricular premature complexes Assessment & Plan: Continue his beta lakhwinder. Respiratory distress experienced on admission was likely due to bilateral pneumonia and not heart failure. (2) Primary hypertension Assessment & Plan: Continue Carvedilol. (3) Mixed hyperlipidemia Assessment & Plan: Well controlled on his home dose of simvastatin. (4) Shortness of breath Assessment & Plan: Most likely due to pneumonia and not heart failure. (5) Obesity Assessment & Plan: Counseled on the benefits of weight loss (6) Pneumonia Status: Acute Assessment & Plan: Treatment managed by inpatient care team. Received do xycycline and ceftriaxone. Qualifiers: Qualified Codes: J18.9 - Pneumonia, unspecified organism (7) Type 2 diabetes mellitus without complication Assessment & Plan: Continue metformin and novolog Supervisory-Addendum Brief Verification & Attestation Participated in pt care: history, MDM, physical Personally performed: exam, history, MDM Care discussed with: Medical Student Procedures: n/a Results interpretation: Verified all documentation I independently performed my own history and physical and physical examination. I formulated my own impression and plan. I also reviewed the documentation of the medical student. TED KLEIN Sep 11, 2022 08:11 HOANG GARNER JR, MD Sep 11, 2022 10:18
[2022-09-11] MEDS: LORATADINE (CLARITIN) 10 MG TAB PO SCH (08:48)
[2022-09-11] MEDS: DOCUSATE SODIUM 100 MG (COLACE) CAP PO SCH (08:48)
[2022-09-11] MEDS: KCL 20 MEQ TAB (K-DUR) PO SCH (08:49)
[2022-09-11] MEDS: metFORMIN 500 MG (GLUCOPHAGE) TAB PO SCH (08:49)
[2022-09-11] MEDS: ASPIRIN 81 MG CHEW (CHILDREN'S ASA) PO SCH (08:49)
[2022-09-11] MEDS ORDERED: CEFD300C3 PO (10:29)
[2022-09-11] MEDS ORDERED: DOXY100T2 PO (10:29)
--- NOTE | 2022-09-11 10:32 | Discharge Summary ---
Discharge Summary Hospital Course Was the Problem List Reviewed?: Yes Problems/Dx: (1) Pneumonia Status: Acute Qualifiers: Qualified Codes: J18.9 - Pneumonia, unspecified organism (2) Primary hypertension (3) Mixed hyperlipidemia (4) Obesity (5) Type 2 diabetes mellitus without complication (6) Ventricular premature complexes Hospital Course Date of Admission: Sep 09, 2022 at 15:40 Admission Diagnosis : Family Physician/Provider: [place] Date of Discharge: 09/11/22 Discharge Diagnosis: [ ] Hospital Course: Patient is a 67-year-old male with a history of HTN, HLD, DM, GENESIS on CPAP and PVCs who presented to the ED on 09/09 with chief complaint of fever, vomiting, and coughing. The patient states that his symptoms began about 4-5 days prior to admission shortly after his was overcoming an illness. His symptoms initially improved but then began to worsen over the next couple days. He had 2 episodes of non-bloody emesis and states that he was so fatigued he could barely get off the couch. The patient states that he was not able to eat 3-4 days prior to admission due to his N/V. Yesterday, the patient was standing up after using the restroom and had a near syncopal episode that caused him to lose his balance and fall to the floor and needed his 's assistance to get back up. The patient was admitted for acute respiratory failure requiring oxygen. CT of the abdomen and pelvis showed left lower lobe pneumonia as well as hepatic steatosis and ventral, umbilical, and b/l inguinal hernias. CXR showed effusion and atelectasis/infiltrates in the left lower lobe consistent with pneumonia, and CT of the chest showed b/l lower lobe pneumonia worse on the left. The patient was started on rocephin and doxycycline. Cardiology was consulted due to the history of PVCs. EKG showed sinus rhythm with an incomplete right bundle branch block. Echo showed an ejection fraction of 60-65%, mild aortic stenosis, and a systolic pulmonary arterial pressure of 36mm Hg. The patient's fatigue, nausea, and vomiting improved greatly during his stay, and he was able to tolerate resuming his normal diet. The patient was taken off oxygen this morning and his O2 saturation has remained stable. The patient is scheduled to follow up outpatient with Dr. Garner, and is being prepared for discharge later today with omnicef and doxycycline. ESAU DE AL ROSA Labs and Pending Lab Test: Laboratory Tests 09/10/22 11:15: Glucometer 127H 09/10/22 15:28: Glucometer 120H 09/10/22 20:04: Glucometer 163H 09/11/22 05:10: White Blood Count 6.2, Red Blood Count 4.22L, Hemoglobin 13.5, Hematocrit 38L, Mean Corpuscular Volume 90, Mean Corpuscular Hemoglobin 32, Mean Corpuscular Hemoglobin Concent 36, Red Cell Distribution Width 11.5, Platelet Count 148, Mean Platelet Volume 10.5, Immature Granulocyte % (Auto) 1, Neutrophils (%) (Auto) 65, Lymphocytes (%) (Auto) 26, Monocytes (%) (Auto) 7, Eosinophils (%) (Auto) 0, Basophils (%) (Auto) 0, Neutrophils # (Auto) 4.0, Lymphocytes # (Auto) 1.6, Monocytes # (Auto) 0.5, Eosinophils # (Auto) 0.0, Basophils # (Auto) 0.0, Immature Granulocyte # (Auto) 0.1, Percent Immature Platelet Fraction 4.3, Sodium Level 137, Potassium Level 3.4L, Chloride Level 103, Carbon Dioxide Level 23, Anion Gap 11, Blood Urea Nitrogen 10, Creatinine 0.63, Estimat Glomerular Filtration Rate 105, BUN/Creatinine Ratio 16, Glucose Level 132H, Calcium Level 7.8L, Corrected Calcium 8.8, Total Bilirubin 0.5, Aspartate Amino Transf (AST/SGOT) 68H, Alanine Aminotransferase (ALT/SGPT) 56H, Alkaline Phosphatase 43, Total Protein 5.7L, Albumin 2.8L Microbiology 09/09/22 Blood Culture - Preliminary, Resulted No growth Home Meds Active Cefdinir 300 Mg Capsule 300 Mg PO BID Doxycycline Hyclate 100 Mg Tablet 100 Mg PO BID@07,17 Reported Chew Q (Ubidecarenone) 100 Mg Tab.chew 200 Mg PO HS TAKES 2 (100MG) TABS Vitamin D3 (Cholecalciferol (Vitamin D3)) 25 Mcg (1000 Unit) Tab.chew 50 Mcg PO DAILY Loratadine 10 Mg Tablet 10 Mg PO DAILY Aspirin 81 Mg Tab.chew 81 Mg PO DAILY Carvedilol 12.5 Mg Tablet 12.5 Mg PO BID Simvastatin 40 Mg Tablet 40 Mg PO HS Metformin HCl 500 Mg Tablet 500 Mg PO BID Assessment/Pt Instructions PCP in 1 week Discharge Planning: <30 minutes discharge planning Discharge Instructions Discharge Diet: No Restrictions Discharge Physical Examination Vital Signs Vital Signs Date Time Temp Pulse Resp B/P (MAP) Pulse Ox O2 Delivery O2 Flow Rate FiO2 09/11/22 10:14 92 Room Air 09/11/22 08:00 3.50 09/11/22 07:38 36.2 62 18 119/61 (80) General Appearance: No Apparent Distress, WD/WN, Chronically ill Respiratory: Rales Allergies: Coded Allergies: Penicillins (Verified Allergy, Unknown, 09/09/22) lisinopril (Verified Allergy, Unknown, 09/09/22) Discharge Summary Date of Admission Sep 09, 2022 at 15:40 Date of Discharge Discharge Date: Sep 11, 2022 Admission Diagnosis Assessment: Acute respiratory failure requiring supplemental oxygen Pneumonia GENESIS on CPAP Obesity BMI 35 PVCs consulting cardiology Diabetes Hypertension Hyperlipidemia Plan: IV antibiotics Hep-Lock IV fluid Cardiology consult Discharge Diagnosis (1) Pneumonia Status: Acute Assessment & Plan: Treatment managed by inpatient care team. Received doxycycline and ceftriaxone. Qualifiers: Qualified Codes: J18.9 - Pneumonia, unspecified organism (2) Primary hypertension Assessment & Plan: continue Carvedilol (3) Mixed hyperlipidemia Assessment & Plan: Obtain lipid panel (4) Obesity Assessment & Plan: Counseled on the benefits of weight loss (5) Type 2 diabetes mellitus without complication Assessment & Plan: Continue metformin and novolog (6) Ventricular premature complexes Assessment & Plan: Continue his beta lakhwinder. Respiratory distress experienced on admission was likely due to bilateral pneumonia. JAEL VALENCIA DO Sep 11, 2022 10:32
--- NOTE | 2022-09-11 11:07 | Progress Note ---
ESAU DE LA ROSA 09/11/22 1107: Progress Note Patient is a 67-year-old male with a history of HTN, HLD, DM, GENESIS on CPAP and PVCs who presented to the ED on 09/09 with chief complaint of fever, vomiting, and coughing. The patient states that his symptoms began about 4-5 days prior to admission shortly after his was overcoming an illness. His symptoms initially improved but then began to worsen over the next couple days. He had 2 episodes of non-bloody emesis and states that he was so fatigued he could barely get off the couch. The patient states that he was not able to eat 3-4 days prior to admission due to his N/V. Yesterday, the patient was standing up after using the restroom and had a near syncopal episode that caused him to lose his balance and fall to the floor and needed his 's assistance to get back up. The patient was admitted for acute respiratory failure requiring oxygen. CT of the abdomen and pelvis showed left lower lobe pneumonia as well as hepatic steatosis and ventral, umbilical, and b/l inguinal hernias. CXR showed effusion and atelectasis/infiltrates in the left lower lobe consistent with pneumonia, and CT of the chest showed b/l lower lobe pneumonia worse on the left. The patient was started on rocephin and doxycycline. Cardiology was consulted due to the history of PVCs. EKG showed sinus rhythm with an incomplete right bundle branch block. Echo showed an ejection fraction of 60-65%, mild aortic stenosis, and a systolic pulmonary arterial pressure of 36mm Hg. The patient's fatigue, nausea, and vomiting improved greatly during his stay, and he was able to tolerate resuming his normal diet. The patient was taken off oxygen this morning and his O2 saturation has remained stable. The patient is scheduled to follow up outpatient with Dr. Garner, and is being prepared for discharge later today with omnicef and doxycycline. MARIA M LEWIS DO 09/12/22 0549: Supervisory-Addendum Brief Verification & Attestation Participated in pt care: history, MDM, physical Personally performed: exam, history, MDM, supervision of care Care discussed with: Medical Student Procedures: n/a Results interpretation: Verified all documentation Verification and Attestation of Medical Student E/M Service A medical student performed and documented this service in my presence. I reviewed and verified all information documented by the medical student and made modifications to such information, when appropriate. I personally performed the physical exam and medical decision making. Maria M Lewis, Sep 12, 2022,05:49 ESAU DE LA ROSA Sep 11, 2022 11:07 MARIA M LEWIS DO Sep 12, 2022 05:49
[2022-09-11 11:24] VITALS: BP 101/58
[2022-09-11 13:29] VITALS: BP 110/64
== END 2022-09-11 17:00 | disposition home or self-care (01) ==
LOC: ER FS 12:23 → UNDOADMOB 15:40 → 4TH 15:40 → UNDODISOB 09-11 13:10
PROVIDERS: ADMIT Internal Medicine; ATTEND Internal Medicine
DX: J18.9 Pneumonia, unspecified organism (principal); I10 Essential (primary) hypertension; E78.2 Mixed hyperlipidemia; E66.9 Obesity, unspecified; E11.9 Type 2 diabetes mellitus without complications; J96.00 Acute respiratory failure, unspecified whether with hypoxia or hypercapnia; I49.3 Ventricular premature depolarization; E87.6 Hypokalemia; J96.01 Acute respiratory failure with hypoxia; Z68.35 Body mass index [BMI] 35.0-35.9, adult; Z87.891 Personal history of nicotine dependence
CPT/HCPCS: 36415; 71045; 71250; 74176; 80053 ×3; 80061; 82947 ×3; 83605; 83690; 83735; 84443; 84484; 85025 ×3; 87040; 87636; 93005 ×2; 93041; 94640 ×3; 94760 ×2; 94761; 96361 ×2; 96366 ×2; 96372 ×2; 96376; 99284; C8929; G0378; 93306

== ENCOUNTER → 2023-01-06 | Outpatient (CLI) | payer MEDICARE ==
[~2023-01-06] MED LIST: ASPI-999 PO; CARV12.53 PO; CEFD300C3 PO; CHOL10008 PO; DOXY100T2 PO; HYDR25TA4 PO; LORA10TA7 PO; METF-397 PO; SIMV40TA25 PO; UBID100C17 PO; UBID100T PO
--- NOTE | 2023-01-06 15:35 | Diagnostic Imaging Report ---
INDICATION: INJURY OF HAND TECHNIQUE: Three views of the right hand. CORRELATION STUDY: None FINDINGS: There is no acute fracture or dislocation. Mild amount of multifocal degenerative changes are present at multiple joints. Slightly more prominent osteophytes at the proximal interphalangeal joint of the index finger as well as at the interphalangeal joint of the thumb. Mild to moderately advanced degenerative changes at the base of the thumb. Mild marginal osteophyte formation is present. Prominent soft tissue edema but may be slightly more prominent involving the index finger. There is linear soft tissue density at the proximal aspect of the index finger, may reflect small foreign body or calcification. IMPRESSION: 1. Negative for acute bony abnormality of the hand. Mild multifocal degenerative changes are present. Asymmetric soft tissue swelling, particularly involving the index finger. Dictated by: Dictated on workstation # [id number]
== END ==
LOC: RAD FS 08:34
PROVIDERS: ATTEND Nurse Practitioner Family
DX: S69.91XA Unspecified injury of right wrist, hand and finger(s), initial encounter (principal); M19.041 Primary osteoarthritis, right hand; M79.89 Other specified soft tissue disorders
CPT/HCPCS: 73130